=== PATIENT | male | born 1935 | race Caucasian/White ===

== ENCOUNTER 2016-07-31 15:59 | Inpatient (IN) | payer OTHER ==
[2016-07-31] MEDS ORDERED: TUSSIONEX PENNKINETIC SUSP PO PRN (17:50)
[2016-07-31] MEDS ORDERED: ZOFRAN INJ 4 MG VIAL IVP PRN (17:50)
[2016-07-31] MEDS ORDERED: NS 1000 ML 1,000 ML IV SCH (17:50)
[2016-07-31] MEDS ORDERED: PHARMACY CONSULT - DOSE _____ XX SCH (17:50)
[2016-07-31] MEDS ORDERED: NS 1000 ML 1,000 ML IV ONE (17:50)
[2016-07-31] MEDS ORDERED: SALINE 3% 15 ML NEB TX ONE (18:11)
[2016-07-31] MEDS ORDERED: SALINE 3% 15 ML NEB TX NEB ONE (18:12)
[2016-07-31] MEDS ORDERED: LEVAQUIN PREMIX IV 750 MG 750 MG/150 ML BAG IV STA (18:40)
[2016-07-31] MEDS: ROBITUSSIN DM PO SCH ×2 (18:44→20:55)
[2016-07-31 18:53] LABS: BASOPHILS # (AUTO) 0.1 X10^3/uL (0.0-0.1); EOSINOPHILS # (AUTO) 0.1 x10^3/uL (0.0-0.2); EOSINOPHILS % (AUTO) 1.5 % (0.9-2.9); HEMATOCRIT 42.1 % (42.0-54.0); HEMOGLOBIN 13.9 g/dL (13.5-18.0); LYMPHOCYTES # (AUTO) 1.4 X10^3/uL (1.3-2.9); LYMPHOCYTES % (AUTO) 21.4 % (21.0-51.0); MEAN CORPUSCULAR HEMOGLOBIN 29.4 pg (27.0-34.0); MEAN CORPUSCULAR HGB CONC 33.1 g/dL (33.0-35.0); MEAN CORPUSCULAR VOLUME 88.9 fL (80.0-100.0); MEAN PLATELET VOLUME 9.1 fL (7.4-11.0); MONOCYTES % (AUTO) 15.3 % (0.0-13.0); NEUTROPHILS # (AUTO) 3.9 x10^3/uL (2.2-4.8); NEUTROPHILS % (AUTO) 60.8 % (42.0-75.0); PLATELET COUNT 155 X10^3/uL (150.0-450.0); RED BLOOD COUNT 4.74 X10^6/uL (4.7-6.0); RED CELL DISTRIBUTION WIDTH 14.4 % (11.6-16.5); WHITE BLOOD COUNT 6.4 X10^3/uL (3.6-10.0)
[2016-07-31 18:56] LABS: ALANINE AMINOTRANSFERASE 39 Units/L (12-78); ALBUMIN 3.1 g/dL (3.4-5.0); ALKALINE PHOSPHATASE 85 Units/L (46-116); ASPARTATE AMINO TRANSFERASE 29 Units/L (15-37); BLOOD UREA NITROGEN 23 mg/dL (7-18); CALCIUM 8.2 mg/dL (8.5-10.1); CARBON DIOXIDE 31.1 mmol/L (21-32); CHLORIDE 105 mmol/L (98-107); COR CA(FOR HYPOALB) 8.9 mg/dL (8.5-10.1); CREATININE 1.39 mg/dL (0.70-1.30); GLUCOSE 106 mg/dL (65-99); SODIUM 146 mmol/L (136-145); TOTAL PROTEIN 6.9 g/dL (6.4-8.2); eGFR BLACK RACES > 60 (>60); eGFR NON BLACK RACES 52 (>60)
[2016-07-31] MEDS ORDERED: K-RIDER 10 MEQ/NS 100 ML 10 MEQ/100 ML BAG IV PRN (19:29)
[2016-07-31] MEDS ORDERED: POTASSIUM CHLORIDE LIQ 20 MEQ UDC PO PRN (19:29)
[2016-07-31] MEDS ORDERED: K-LYTE EFFERVESCENT PO PRN (19:29)
[2016-07-31] MEDS ORDERED: K-DUR TAB 20 MEQ PO PRN (19:29)
[2016-07-31 19:31] LABS: MYCOPLASMA PNEUMONIAE IGM AB POSITIVE (NEGATIVE)
[2016-07-31] MEDS: DUONEB 0.5 MG/3 MG NEB SCH (20:38)
[2016-07-31] MEDS ORDERED: NS 1/2 1000 ML IV 1,000 ML IV ONE (20:45)
[2016-07-31] MEDS: NS 1/2 1000 ML IV 1,000 ML IV SCH (20:57)
[2016-07-31 20:59] VITALS: BMI 28.3
[2016-07-31] MEDS: HUMULIN R SC PRN (21:00)
[2016-08-01] MEDS: DUONEB 0.5 MG/3 MG NEB SCH ×6 (00:50→20:50)
[2016-08-01 05:25] LABS: EOSINOPHILS # (AUTO) 0.1 x10^3/uL (0.0-0.2); EOSINOPHILS % (AUTO) 3.2 % (0.9-2.9); HEMATOCRIT 38.4 % (42.0-54.0); HEMOGLOBIN 12.9 g/dL (13.5-18.0); LYMPHOCYTES # (AUTO) 1.4 X10^3/uL (1.3-2.9); LYMPHOCYTES % (AUTO) 31.3 % (21.0-51.0); MEAN CORPUSCULAR HEMOGLOBIN 29.8 pg (27.0-34.0); MEAN CORPUSCULAR HGB CONC 33.6 g/dL (33.0-35.0); MEAN CORPUSCULAR VOLUME 88.7 fL (80.0-100.0); MEAN PLATELET VOLUME 9.2 fL (7.4-11.0); MONOCYTES % (AUTO) 21.5 % (0.0-13.0); PLATELET COUNT 125 X10^3/uL (150.0-450.0); RED BLOOD COUNT 4.32 X10^6/uL (4.7-6.0); RED CELL DISTRIBUTION WIDTH 14.4 % (11.6-16.5); WHITE BLOOD COUNT 4.6 X10^3/uL (3.6-10.0)
[2016-08-01 05:32] LABS: ALANINE AMINOTRANSFERASE 33 Units/L (12-78); ALBUMIN 2.7 g/dL (3.4-5.0); ALKALINE PHOSPHATASE 76 Units/L (46-116); ASPARTATE AMINO TRANSFERASE 24 Units/L (15-37); BLOOD UREA NITROGEN 20 mg/dL (7-18); CALCIUM 7.8 mg/dL (8.5-10.1); CARBON DIOXIDE 30.1 mmol/L (21-32); CHLORIDE 109 mmol/L (98-107); COR CA(FOR HYPOALB) 8.8 mg/dL (8.5-10.1); COR NA(FOR HYPERGLY) 149 mmol/L (136-145); CREATININE 1.27 mg/dL (0.70-1.30); GLUCOSE 171 mg/dL (65-99); MAGNESIUM 1.7 mg/dL (1.7-2.9); SODIUM 147 mmol/L (136-145); TOTAL PROTEIN 6.2 g/dL (6.4-8.2); eGFR BLACK RACES > 60 (>60); eGFR NON BLACK RACES 58 (>60)
[2016-08-01] MEDS ORDERED: NS 100 ML IV 100 ML IV ONE (05:56)
[2016-08-01 06:02] LABS: BAND NEUTROPHILS % 6 % (0-10)
[2016-08-01 06:03] LABS: PLATELET MORPHOLOGY COMMENT NORMAL (NORMAL)
--- NOTE | 2016-08-01 06:46 | CT ---
HISTORY: Pneumonia, shortness of breath Study: CTA chest with IV contrast Comparison: No priors Technique: Multiple axial images of the chest were obtained from the thoracic inlet to the upper abd omen during the administration of IV contrast. Coronal and sagittal images are reviewed. Dose reduct ion techniques utilized automatic exposure control. Findings: Small mediastinal lymph nodes are present centrally. No pathologic appearing lymph nodes are seen. There is no pericardial effusion observed. The thoracic aorta is normal in its contour without evid ence for aneurysmal dilatation. there are coronary artery calcifications bilaterally including the l eft distal main coronary artery. The central pulmonary arterial system does not demonstrate central filling defects to suggest pulmonary emboli. Evaluation of the lung parenchyma reveals centrilobular emphysema. There is mild cylindrical bronchi ectasis bilaterally.. No consolidation is seen. A tiny pleural effusion may be present on the left s neyda. There are areas of bronchial thickening present involving the lung bases likely representing mi ld bronchitis.. No pulmonary nodule or mass can be identified. The bony thorax is unremarkable in its appearance. The visualized portions of the upper abdomen are grossly unremarkable. IMPRESSION: COPD with mild bibasilar bronchitis. No consolidation is seen. A very tiny amount of pleural fluid i s seen on the left. No evidence of thoracic aortic aneurysm or pulmonary embolus. Bilateral coronary artery calcifications including the left distal main coronary artery. Reported By:
[2016-08-01] MEDS: HUMULIN R SC PRN (07:10)
[2016-08-01] MEDS: ROBITUSSIN DM PO SCH ×4 (09:17→21:02)
[2016-08-01] MEDS ORDERED: [UNRECOGNIZED DRUG - OTHER] PO SCH (09:45)
[2016-08-01] MEDS ORDERED: FERROUS SULFATE PO SCH (09:45)
[2016-08-01] MEDS ORDERED: [UNRECOGNIZED DRUG - OTHER] PO SCH (09:45)
[2016-08-01] MEDS: SPIRIVA HANDIHALER (30 DOSE) IN SCH (10:27)
[2016-08-01] MEDS: PROTONIX TAB 40 MG PO SCH ×2 (10:48→21:04)
[2016-08-01] MEDS: LASIX PO SCH ×2 (10:48→21:02)
[2016-08-01] MEDS: ASPIRIN EC 81 MG PO SCH (10:49)
[2016-08-01] MEDS: COREG TAB 12.5 MG PO SCH ×2 (10:49→21:04)
[2016-08-01] MEDS: COZAAR PO SCH (10:50)
[2016-08-01] MEDS: SYNTHROID 25 mcg TAB PO SCH (10:50)
--- NOTE | 2016-08-01 11:07 | DR.UPDATE ---
H&P Update History and Physical Update: H&P UPDATE FOR ADMISSION 07/31/16 MR. JENSEN'S H&P WAS COMPLETED IN OUR OFFICE PRIOR TO ADMISSION. HE HAS BEEN SEEN AND EXAMINED WITH NO CHANGES NOTED.
[2016-08-01] MEDS ORDERED: [UNRECOGNIZED DRUG - OTHER] SC SCH (11:30)
--- NOTE | 2016-08-01 11:37 | PCM.PROG ---
Progress Note - Progress Note for Day of Date: 08/01/16 - Subjective Subjective: PATIENT SITS ON SIDE OF BED WITH SIGNIFICANT OTHER AT BEDSIDE. PATIENT CONTINUES WITH HOARSE COUGH. COUGH IS PRODUCTIVE AT TIMES AND SPUTUM IS THICK, YELLOW. HE CONTINUES WITH SHORTNESS OF BREATH ON EXERTION ALONG WITH FATIGUE AND MALAISE. MYCOPLASMA PNEUMONIA WAS POSITIVE AND PATIENT WILL CONTINUE ON LEVAQUIN IV. ON AUSCULTATION. LUNGS ARE NOTED WITH WHEEZING THROUGHOUT. PATIENT REPORTS DIFFICULTY SWALLOWING AND OCCASIONAL CHOKING ON FOOD. PATIENT IS AFEBRILE. CBC WNL EXCEPT: H/H 12.9/38.4, PLT COUNT 125. CMP WNL EXCEPT: SODIUM 147, CHL 109, BUN 20, GFR 58, GLUCOSE 171, CALCIUM 7.8, TOT PROTEIN 6.2, ALBUMIN 2.7. CHEST CT THIS MORNING REPORTS COPD WITH MILD BIBASILAR BRONCHITIS; NO CONSOLIDATION IS SEEN; NO EVIDENCE OF THORACIC AORTIC ANEURYSM OR PULMONARY EMBOLUS; BILATERAL CORONARY ARTERY CALCIFICATIONS INCLUDING THE LEFT DISTAL MAIN CORONARY ARTERY. CARDIAC ENZYMES WNL. EKG: SINUS RHYTHM, RATE 58. BLOOD AND SPUTUM CULTURES ARE PENDING. WE WILL CONSULT GI FOR POSSIBLE OUTPATIENT EGD, OBTAIN SPEECH EVAL, CONTINUE HOME MEDICATIONS TODAY, CONTINUE CURRENT TREATMENT, AND FOLLOW UP IN AM WITH LABS AND CHEST XRAY. - Past Medical Family Social History Past Med/Fam/Surg Hx: No changes since H&P Allergies: Allergies No Known Drug Allergy Allergy (Verified 01/26/14 09:37) - Review of Systems ROS: No change since H&P - Vital Signs and I&O's Vital Signs: Temperature 98.0 F Pulse Rate [Left Brachial] 53 Pulse Rate [Right Brachial] 58 Pulse Rate 66 Respiratory Rate 20 Blood Pressure [Left Arm] 171/75 Blood Pressure [Right Arm] 171/75 Blood Pressure 144/65 O2 Sat by Pulse Oximetry 92 Intake and Output: Intake & Output 07/29/16 07/30/16 07/31/16 08/01/16 11:59 11:59 11:59 11:59 Intake Total 1220 Output Total 675 Balance 545 - Physical Exam Oriented: Normal, Time, Person, Place Eyes: Normal. negative: Blurred Vision, Diplopia, Discharge, Pain, Redness, Photophobia Ear: Normal. negative: Swelling, Ecchymosis, Hemotypanum, Abrasion, Laceration Nose: Normal. negative: Injected, Discharge, Blood Throat: Red, Dry. negative: Tonsillar Hypertrophy, Exudate Respiratory: Generalized, Wheezes Cardiovascular: Normal. negative: Murmur, Edema : Normal. negative: Dysuria, Hematuria, Frequency, Discharge, Testicular Pain Auscultation: Bowel Sounds: Normal. negative: Bruit Palpation: Normal. negative: Spleen Enlarged, Liver Enlarged, Mass Pulsatile Tenderness: Normal. negative: Rebound, Guarding, Rigidity Skin: Decreased Turgur. negative: Diaphoresis, Wound, Bruising, Ecchymosis Musculoskeletal: Normal Psychiatric: Normal Mood Description: Calm, Appropriate Affect: Normal Speech Pattern: Clear, Appropriate - Laboratory and Diagnostics Result Diagrams: 08/01/16 04:55 08/01/16 04:55 Labs: 07/31/16 19:36 Sputum - Expectorated Sputum - Final Laboratory WBC 4.6 X10^3/uL (3.6-10.0) 08/01/16 04:55 RBC 4.32 X10^6/uL (4.7-6.0) L 08/01/16 04:55 Hgb 12.9 g/dL (13.5-18.0) L 08/01/16 04:55 Hct 38.4 % (42.0-54.0) L 08/01/16 04:55 MCV 88.7 fL (80.0-100.0) 08/01/16 04:55 MCH 29.8 pg (27.0-34.0) 08/01/16 04:55 MCHC 33.6 g/dL (33.0-35.0) 08/01/16 04:55 RDW 14.4 % (11.6-16.5) 08/01/16 04:55 Plt Count 125 X10^3/uL (150.0-450.0) L 08/01/16 04:55 Plt Count Comment Decreased (ADEQUATE) 08/01/16 04:55 MPV 9.2 fL (7.4-11.0) 08/01/16 04:55 Neut % 43.0 % (42.0-75.0) 08/01/16 04:55 Lymph % 31.3 % (21.0-51.0) 08/01/16 04:55 [place] % 21.5 % (0.0-13.0) H 08/01/16 04:55 Eos % 3.2 % (0.9-2.9) H 08/01/16 04:55 Baso % 1.0 % (0.2-1.0) 08/01/16 04:55 Neut # 2.0 x10^3/uL (2.2-4.8) L 08/01/16 04:55 Lymph # 1.4 X10^3/uL (1.3-2.9) 08/01/16 04:55 [place] # 1.0 x10^3/uL (0.3-0.8) H 08/01/16 04:55 Eos # 0.1 x10^3/uL (0.0-0.2) 08/01/16 04:55 Baso # 0.0 X10^3/uL (0.0-0.1) 08/01/16 04:55 Absolute Nucleated RBC 0.1 /100WBC 08/01/16 04:55 Total Counted 100 08/01/16 04:55 Neutrophils % (Manual) 41 % (39-76) 08/01/16 04:55 Band Neutrophils % 6 % (0-10) 08/01/16 04:55 Lymphocytes % (Manual) 32 % (13-43) 08/01/16 04:55 Monocytes % (Manual) 17 % (4-9) H 08/01/16 04:55 Eosinophils % (Manual) 4 % (0-6) 08/01/16 04:55 Plt Morphology Comment Normal (NORMAL) 08/01/16 04:55 RBC Morphology Normal (NORMAL) 08/01/16 04:55 Sodium 147 mmol/L (136-145) H 08/01/16 04:55 Corrected Sodium 149 mmol/L (136-145) H 08/01/16 04:55 Potassium 3.8 mmol/L (3.5-5.1) 08/01/16 04:55 Chloride 109 mmol/L (98-107) H 08/01/16 04:55 Carbon Dioxide 30.1 mmol/L (21-32) 08/01/16 04:55 BUN 20 mg/dL (7-18) H 08/01/16 04:55 Creatinine 1.27 mg/dL (0.70-1.30) 08/01/16 04:55 Est GFR (MDRD) Af Amer > 60 (>60) 08/01/16 04:55 Est GFR (MDRD) Non-Af 58 (>60) L 08/01/16 04:55 Glucose 171 mg/dL (65-99) H 08/01/16 04:55 Calcium 7.8 mg/dL (8.5-10.1) L 08/01/16 04:55 Corrected Calcium 8.8 mg/dL (8.5-10.1) 08/01/16 04:55 Magnesium 1.7 mg/dL (1.7-2.9) 08/01/16 04:55 Total Bilirubin 0.40 mg/dL (0.2-1.0) 08/01/16 04:55 AST 24 Units/L (15-37) 08/01/16 04:55 ALT 33 Units/L (12-78) 08/01/16 04:55 Alkaline Phosphatase 76 Units/L (46-116) 08/01/16 04:55 Total Protein 6.2 g/dL (6.4-8.2) L 08/01/16 04:55 Albumin 2.7 g/dL (3.4-5.0) L 08/01/16 04:55 Globulin 3.5 g/dL (2.5-4.5) 08/01/16 04:55 Albumin/Globulin Ratio 0.8 Ratio (1.1-2.1) L 08/01/16 04:55 Mycoplasma pneumon IgG Positive (NEGATIVE) A 07/31/16 18:05 - Plan (1) Mycoplasma pneumonia Status: Acute Qualifiers: Laterality: unspecified laterality Lung location: unspecified part of lung Qualified Code(s): J15.7 - Pneumonia due to Mycoplasma pneumoniae Plan: CONTINUE IV LEVAQUIN, IV FLUIDS, DUONEBS, ROBITUSSIN, TUSSIONEX, SUPPLEMENTAL OXYGEN, MONITOR LABS AND CHEST XRAY. (2) Hypoxia Status: Acute Plan: ABOVE. (3) Dysphagia Status: Acute Qualifiers: Dysphagia type: D Plan: CONSULT GI FOR POSSIBLE OUTPATIENT EGD, SPEECH EVAL, MONITOR. (4) Fever Status: Acute Qualifiers: Fever type: due to other condition Encounter type: E Qualified Code(s): R50.81 - Fever presenting with conditions classified elsewhere Plan: ABOVE. (5) Shortness of breath Status: Acute Plan: ABOVE. (6) Malaise and fatigue Status: Acute Plan: ABOVE. (7) Hypertension Status: Chronic Qualifiers: Hypertension type: essential hypertension Qualified Code(s): I10 - Essential (primary) hypertension (8) COPD (chronic obstructive pulmonary disease) Status: Chronic Qualifiers: COPD type: COPD with acute lower respiratory infection Chronic bronchitis type: C Emphysema type: E Qualified Code(s): J44.0 - Chronic obstructive pulmonary disease with acute lower respiratory infection (9) GERD (gastroesophageal reflux disease) Status: Chronic Qualifiers: Esophagitis presence: esophagitis presence not specified Qualified Code(s) : K21.9 - Gastro-esophageal reflux disease without esophagitis (10) Diabetes type 2, controlled Status: Chronic Qualifiers: Diabetes mellitus complication status: without complication Diabetes mellitus complication detail: D Diabetic retinopathy severity: D Proliferative retinopathy type: P Diabetes mellitus macular edema: D Diabetes mellitus detention insulin use: with detention use Laterality: L Chronic kidney disease stage: C Qualified Code(s): E11.9 - Type 2 diabetes mellitus without complications; Z79.4 - continuous churn buttermaker (current) use of insulin (11) Hypothyroid Status: Chronic Qualifiers: Hypothyroidism type: acquired Qualified Code(s): E03.9 - Hypothyroidism, unspecified (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
[2016-08-01] MEDS ORDERED: NS 1/2 1000 ML IV 1,000 ML IV ONE (11:55)
[2016-08-01] MEDS: NS 1/2 1000 ML IV 1,000 ML IV SCH (11:59)
[2016-08-01] MEDS: PEPCID TAB 20 MG PO SCH ×2 (11:59→21:02)
--- NOTE | 2016-08-01 12:55 | RAD ---
PA and lateral Chest Indication: Cough, congestion and shortness of breath cough congestion shortness breath Comparison: 07/13/2016 Findings: The trachea is midline. The cardiac silhouette is unremarkable. The lungs are hyperexpanded consis tent with COPD. The lungs are clear without focal infiltrate or effusion. The stable blunting of le ft costophrenic sulcus suggest scarring. The bony thorax is unremarkable. IMPRESSION: 1. No acute cardiopulmonary abnormality. Reported By:
[2016-08-01] MEDS: HUMALOG SC SCH ×2 (13:25→17:00)
[2016-08-01] MEDS ORDERED: LEVAQUIN PREMIX IV 750 MG 750 MG/150 ML BAG IV SCH (18:00)
[2016-08-01] MEDS ORDERED: SNACK - Diabetic Appropriate PO SCH (20:00)
[2016-08-01] MEDS ORDERED: INSULIN GLARGINE SC SCH (21:00)
[2016-08-01] MEDS ORDERED: ZOCOR TAB 40 MG PO SCH (21:00)
[2016-08-01] MEDS ORDERED: LANTUS SC SCH (21:00)
[2016-08-01] MEDS ORDERED: HUMALOG SC PRN (22:38)
[2016-08-02] MEDS: DUONEB 0.5 MG/3 MG NEB SCH ×4 (01:22→11:57)
[2016-08-02] MEDS ORDERED: NS 1/2 1000 ML IV 1,000 ML IV ONE (03:07)
[2016-08-02] MEDS: NS 1/2 1000 ML IV 1,000 ML IV SCH ×2 (03:08→12:29)
[2016-08-02 05:34] LABS: BASOPHILS % (AUTO) 0.7 % (0.2-1.0); EOSINOPHILS # (AUTO) 0.3 x10^3/uL (0.0-0.2); EOSINOPHILS % (AUTO) 5.3 % (0.9-2.9); HEMOGLOBIN 12.4 g/dL (13.5-18.0); LYMPHOCYTES # (AUTO) 1.5 X10^3/uL (1.3-2.9); LYMPHOCYTES % (AUTO) 24.4 % (21.0-51.0); MEAN CORPUSCULAR HEMOGLOBIN 29.6 pg (27.0-34.0); MEAN CORPUSCULAR HGB CONC 33.5 g/dL (33.0-35.0); MEAN CORPUSCULAR VOLUME 88.3 fL (80.0-100.0); MEAN PLATELET VOLUME 9.1 fL (7.4-11.0); MONOCYTES # (AUTO) 0.8 x10^3/uL (0.3-0.8); MONOCYTES % (AUTO) 12.8 % (0.0-13.0); NEUTROPHILS # (AUTO) 3.5 x10^3/uL (2.2-4.8); NEUTROPHILS % (AUTO) 56.8 % (42.0-75.0); PLATELET COUNT 128 X10^3/uL (150.0-450.0); RED BLOOD COUNT 4.19 X10^6/uL (4.7-6.0); RED CELL DISTRIBUTION WIDTH 14.1 % (11.6-16.5); WHITE BLOOD COUNT 6.1 X10^3/uL (3.6-10.0)
[2016-08-02 05:53] LABS: ALANINE AMINOTRANSFERASE 30 Units/L (12-78); ALBUMIN 2.6 g/dL (3.4-5.0); ALKALINE PHOSPHATASE 70 Units/L (46-116); ASPARTATE AMINO TRANSFERASE 23 Units/L (15-37); BLOOD UREA NITROGEN 18 mg/dL (7-18); CALCIUM 7.7 mg/dL (8.5-10.1); CARBON DIOXIDE 27.9 mmol/L (21-32); CHLORIDE 107 mmol/L (98-107); COR CA(FOR HYPOALB) 8.8 mg/dL (8.5-10.1); CREATININE 1.02 mg/dL (0.70-1.30); GLUCOSE 79 mg/dL (65-99); SODIUM 144 mmol/L (136-145); eGFR BLACK RACES > 60 (>60); eGFR NON BLACK RACES > 60 (>60)
[2016-08-02] MEDS: HUMALOG SC SCH ×2 (05:55→12:29)
--- NOTE | 2016-08-02 07:01 | RAD ---
HISTORY: Mycoplasma pneumonia Study: Single-view chest, done portably Comparison: July 31, 2016 Findings: Cardiac monitoring electrodes are noted on the chest. There again changes of thoracotomy with median sternotomy sutures. The trachea is midline. The heart size is normal. There is hyperinflation of th e lungs with a small left pleural effusion. No infiltrate is seen. There is no evidence of CHF. No p neumothorax is identified. IMPRESSION: COPD with a small left pleural effusion. No infiltrate is seen. Reported By:
[2016-08-02] MEDS: SPIRIVA HANDIHALER (30 DOSE) IN SCH (08:33)
[2016-08-02] MEDS: PEPCID TAB 20 MG PO SCH (08:38)
[2016-08-02] MEDS: LASIX PO SCH (08:38)
[2016-08-02] MEDS: ROBITUSSIN DM PO SCH ×2 (08:38→12:50)
[2016-08-02] MEDS: COREG TAB 12.5 MG PO SCH (08:39)
[2016-08-02] MEDS: ASPIRIN EC 81 MG PO SCH (08:39)
[2016-08-02] MEDS: SYNTHROID 25 mcg TAB PO SCH (08:39)
[2016-08-02] MEDS: COZAAR PO SCH (08:40)
[2016-08-02] MEDS: PROTONIX TAB 40 MG PO SCH (08:40)
[2016-08-02] MEDS ORDERED: FERROUS SULFATE PO SCH (09:00)
[2016-08-02] MEDS ORDERED: VITAMIN D3 PO SCH (09:00)
[2016-08-02 13:31] VITALS: BP 180/80
== END 2016-08-02 14:15 | disposition home or self-care (01) | DRG 194 ==
LOC: MED/SURG 15:59
PROVIDERS: ADMIT Internal Medicine; ATTEND Internal Medicine
DX: J15.7 Pneumonia due to Mycoplasma pneumoniae (principal); J44.0 Chronic obstructive pulmonary disease with (acute) lower respiratory infection; J98.01 Acute bronchospasm; R06.09 Other forms of dyspnea; R09.02 Hypoxemia; E78.2 Mixed hyperlipidemia; R06.02 Shortness of breath; R53.83 Other fatigue; R13.12 Dysphagia, oropharyngeal phase; R50.81 Fever presenting with conditions classified elsewhere; I10 Essential (primary) hypertension; K21.9 Gastro-esophageal reflux disease without esophagitis; Z79.4 Long term (current) use of insulin; E11.65 Type 2 diabetes mellitus with hyperglycemia; E03.8 Other specified hypothyroidism; Z95.1 Presence of aortocoronary bypass graft
CPT/HCPCS: 36415; 71010; 71020; 71275; 80053; 83735; 84132; 85025; 86738; 87040; 87070; 87205; 93005; 94640; 94760; A4222; J1815; J1817; J1956; J7620

== ENCOUNTER → 2016-08-10 | Day surgery (SDC) | payer OTHER ==
[~2016-08-10] MED LIST: D5 LR 1000 ML 1,000 ML IV ONE; DIPRIVAN VIAL 20 ML ONE; XYLOCAINE 2 % (PLAIN) ONE
[2016-08-10 09:15] VITALS: BP 155/70
== END ==
LOC: SURG1 06:50
PROVIDERS: ATTEND Internal Medicine Gastroenterology
PROC: 0DB88ZX Excision of Small Intestine, Via Natural or Artificial Opening Endoscopic, Diagnostic (ICD-10-PCS; principal; 2016-08-10 10:00)
PROC: 0DJ08ZZ Inspection of Upper Intestinal Tract, Via Natural or Artificial Opening Endoscopic (ICD-10-PCS; principal; 2016-08-10 10:00)
PROC: 0DB68ZX Excision of Stomach, Via Natural or Artificial Opening Endoscopic, Diagnostic (ICD-10-PCS; principal; 2016-08-10 10:00)
PROC: 0D757ZZ Dilation of Esophagus, Via Natural or Artificial Opening (ICD-10-PCS; principal; 2016-08-10 10:00)
DX: R13.19 Other dysphagia (principal); R10.13 Epigastric pain; K21.9 Gastro-esophageal reflux disease without esophagitis; K22.2 Esophageal obstruction; B37.81 Candidal esophagitis; K29.60 Other gastritis without bleeding; K31.89 Other diseases of stomach and duodenum
CPT/HCPCS: A4217; J2001; J3490; J7120

== ENCOUNTER → 2017-06-18 | Outpatient (CLI) | payer OTHER ==
[2016-08-10 09:15] VITALS: BP 155/70
[2017-06-18 09:32] LABS: BASOPHILS % (AUTO) 0.4 % (0.2-1.0); EOSINOPHILS # (AUTO) 0.2 x10^3/uL (0.0-0.2); EOSINOPHILS % (AUTO) 1.7 % (0.9-2.9); HEMATOCRIT 47.9 % (42.0-54.0); LYMPHOCYTES # (AUTO) 2.1 X10^3/uL (1.3-2.9); LYMPHOCYTES % (AUTO) 17.6 % (21.0-51.0); MEAN CORPUSCULAR HEMOGLOBIN 30.1 pg (27.0-34.0); MEAN CORPUSCULAR HGB CONC 33.5 g/dL (33.0-35.0); MEAN CORPUSCULAR VOLUME 89.9 fL (80.0-100.0); MONOCYTES # (AUTO) 0.9 x10^3/uL (0.3-0.8); MONOCYTES % (AUTO) 7.3 % (0.0-13.0); NEUTROPHILS # (AUTO) 8.8 x10^3/uL (2.2-4.8); PLATELET COUNT 197 X10^3/uL (150.0-450.0); RED BLOOD COUNT 5.33 X10^6/uL (4.7-6.0); RED CELL DISTRIBUTION WIDTH 14.9 % (11.6-16.5); WHITE BLOOD COUNT 12.1 X10^3/uL (3.6-10.0)
[2017-06-18 09:44] LABS: ALANINE AMINOTRANSFERASE 49 Units/L (12-78); ALBUMIN 3.2 g/dL (3.4-5.0); ALKALINE PHOSPHATASE 89 Units/L (46-116); ASPARTATE AMINO TRANSFERASE 19 Units/L (15-37); BLOOD UREA NITROGEN 23 mg/dL (7-18); CALCIUM 9.2 mg/dL (8.5-10.1); CARBON DIOXIDE 34.9 mmol/L (21-32); CHLORIDE 105 mmol/L (98-107); COR CA(FOR HYPOALB) 9.8 mg/dL (8.5-10.1); COR NA(FOR HYPERGLY) 143 mmol/L (136-145); CREATININE 1.12 mg/dL (0.70-1.30); SODIUM 143 mmol/L (136-145); TOTAL PROTEIN 6.8 g/dL (6.4-8.2); eGFR BLACK RACES > 60 (>60); eGFR NON BLACK RACES > 60 (>60)
[2017-06-18 09:46] LABS: B-TYPE NATRIURETIC PEPTIDE 141 pg/mL (0-79)
[2017-06-18 10:09] LABS: ERYTHROCYTE SEDIMENTATION RATE 8 MM/HOUR (0-15)
== END ==
LOC: LAB 08:53
PROVIDERS: ATTEND Specialist
DX: I10 Essential (primary) hypertension (principal); R06.02 Shortness of breath; E78.4 Other hyperlipidemia; I25.10 Atherosclerotic heart disease of native coronary artery without angina pectoris; J44.9 Chronic obstructive pulmonary disease, unspecified; E11.9 Type 2 diabetes mellitus without complications; I65.29 Occlusion and stenosis of unspecified carotid artery; I73.9 Peripheral vascular disease, unspecified; Z79.899 Other long term (current) drug therapy; D64.89 Other specified anemias; I45.89 Other specified conduction disorders; I34.0 Nonrheumatic mitral (valve) insufficiency; R05 Cough
CPT/HCPCS: 36415; 80053; 83880; 85025; 85652; 86141

== ENCOUNTER 2018-12-17 13:39 | Observation (INO) ==
[2018-12-17] MEDS ORDERED: ZOFRAN INJ 4 MG VIAL IVP PRN (14:31)
[2018-12-17] MEDS: NS 1000 ML 1,000 ML IV SCH ×2 (15:39→23:38)
[2018-12-17] MEDS: PEPCID 20 MG IV PREMIX* 20 MG/50 ML BAG IV SCH ×2 (15:41→20:09)
[2018-12-17] MEDS: PROTONIX INJ 40 MG VIAL IVP SCH ×2 (15:41→20:10)
[2018-12-17 16:04] LABS: BASOPHILS # (AUTO) 0.1 X10^3/uL (0.0-0.1); BASOPHILS % (AUTO) 0.6 % (0.2-1.0); EOSINOPHILS # (AUTO) 0.1 x10^3/uL (0.0-0.2); EOSINOPHILS % (AUTO) 1.1 % (0.9-2.9); LYMPHOCYTES # (AUTO) 1.6 X10^3/uL (1.3-2.9); LYMPHOCYTES % (AUTO) 17.6 % (21.0-51.0); MEAN CORPUSCULAR HEMOGLOBIN 27.5 pg (27.0-34.0); MEAN CORPUSCULAR HGB CONC 32.5 g/dL (33.0-35.0); MEAN CORPUSCULAR VOLUME 84.6 fL (80.0-100.0); MEAN PLATELET VOLUME 7.8 fL (7.4-11.0); MONOCYTES # (AUTO) 0.8 x10^3/uL (0.3-0.8); MONOCYTES % (AUTO) 8.9 % (0.0-13.0); NEUTROPHILS # (AUTO) 6.7 x10^3/uL (2.2-4.8); NEUTROPHILS % (AUTO) 71.8 % (42.0-75.0); PLATELET COUNT 282 X10^3/uL (150.0-450.0); RED BLOOD COUNT 4.02 X10^6/uL (4.7-6.0); WHITE BLOOD COUNT 9.3 X10^3/uL (3.6-10.0)
[2018-12-17 16:16] LABS: ALANINE AMINOTRANSFERASE 19 Units/L (12-78); ALBUMIN 3.1 g/dL (3.4-5.0); ALKALINE PHOSPHATASE 100 Units/L (46-116); ASPARTATE AMINO TRANSFERASE 17 Units/L (15-37); BLOOD UREA NITROGEN 17 mg/dL (7-18); CALCIUM 8.5 mg/dL (8.5-10.1); CARBON DIOXIDE 24.4 mmol/L (21-32); CHLORIDE 108 mmol/L (98-107); COR CA(FOR HYPOALB) 9.2 mg/dL (8.5-10.1); COR NA(FOR HYPERGLY) 144 mmol/L (136-145); CREATININE 1.15 mg/dL (0.70-1.30); SODIUM 143 mmol/L (136-145); TOTAL PROTEIN 7.2 g/dL (6.4-8.2); eGFR NON BLACK RACES > 60 (>60)
--- NOTE | 2018-12-17 16:21 | RAD ---
Chest, one view Indication: Weakness, shortness of breath Comparison: 11/22/2018 Findings: Heart is normal in size. Prior median sternotomy and left-sided pacemaker noted. Small left pleural effusion and left basilar airspace disease, either representing atelectasis and/or infiltrate is essentially unchanged since prior exam. Remainder of the lungs are clear. No pneumothorax. Impression: Stable small left pleural effusion and left basilar airspace disease. Reported By:
[2018-12-17] MEDS: DUONEB 0.5 MG/3 MG NEB SCH ×2 (16:45→20:34)
[2018-12-17 17:00] VITALS: BMI 26.1
[2018-12-17] MEDS: PULMICORT NEB TX 0.5 MG NEB SCH (20:34)
[2018-12-17] MEDS: SNACK - Diabetic Appropriate PO SCH (20:58)
[2018-12-17 21:05] LABS: BILIRUBIN,URINE NEGATIVE (NEGATIVE); BLOOD/HEMOGLOBIN,URINE 1+ (NEGATIVE); GLUCOSE, URINE 1+ (NEGATIVE); KETONES,URINE NEGATIVE (NEGATIVE); LEUKOCYTE ESTERASE ,URINE NEGATIVE (NEGATIVE); NITRITES,URINE NEGATIVE (NEGATIVE); PROTEIN,URINE 3+ (NEGATIVE); UROBILINOGEN,URINE NORMAL (NORMAL)
[2018-12-17 21:23] LABS: APPEARANCE,URINE CLEAR (CLEAR); BACTERIA,URINE NEGATIVE /HPF (NEGATIVE); COLOR,URINE YELLOW (YELLOW); HYALINE CASTS, URINE FEW /LPF (NEGATIVE); RBC,URINE 0-2 /HPF (NONE SEEN); SQUAMOUS EPITHELIAL CELL,UR NEGATIVE /HPF (NEGATIVE)
[2018-12-17] MEDS: HumuLIN R SUBCUT PRN (21:41)
[2018-12-17 21:59] LABS: CRYPTOSPORIDIUM PARVUM ANTIGEN NEGATIVE (NEGATIVE); GIARDIA LAMBLIA ANTIGEN NEGATIVE (NEGATIVE)
[2018-12-18] MEDS: NS 1000 ML 1,000 ML IV SCH ×6 (02:43→23:10)
[2018-12-18] MEDS: HumuLIN R SUBCUT PRN ×3 (05:58→19:07)
--- NOTE | 2018-12-18 06:14 | RAD ---
HISTORY: Shortness of breath Study: Chest AP portable Comparison: 12/17/2018 Findings: There is a pacemaker present on the left. The patient is status post median sternotomy. The heart is within normal limits in size. The gudelia are normal. The lungs are hyperinflated but free of acute infiltrates. Blunting of the left costophrenic angle likely indicates a small pleural effusion versus fibrosis. The bony thorax is unremarkable. IMPRESSION: Lungs hyperinflated but free of acute infiltrates Reported By:
[2018-12-18 06:39] LABS: BASOPHILS # (AUTO) 0.1 X10^3/uL (0.0-0.1); BASOPHILS % (AUTO) 0.7 % (0.2-1.0); EOSINOPHILS # (AUTO) 0.2 x10^3/uL (0.0-0.2); EOSINOPHILS % (AUTO) 2.7 % (0.9-2.9); HEMATOCRIT 35.3 % (42.0-54.0); HEMOGLOBIN 11.4 g/dL (13.5-18.0); LYMPHOCYTES # (AUTO) 1.8 X10^3/uL (1.3-2.9); LYMPHOCYTES % (AUTO) 23.3 % (21.0-51.0); MEAN CORPUSCULAR HEMOGLOBIN 27.7 pg (27.0-34.0); MEAN CORPUSCULAR HGB CONC 32.2 g/dL (33.0-35.0); MEAN CORPUSCULAR VOLUME 85.8 fL (80.0-100.0); MEAN PLATELET VOLUME 8.8 fL (7.4-11.0); MONOCYTES # (AUTO) 0.7 x10^3/uL (0.3-0.8); MONOCYTES % (AUTO) 9.6 % (0.0-13.0); NEUTROPHILS % (AUTO) 63.7 % (42.0-75.0); PLATELET COUNT 261 X10^3/uL (150.0-450.0); RED BLOOD COUNT 4.11 X10^6/uL (4.7-6.0); RED CELL DISTRIBUTION WIDTH 16.2 % (11.6-16.5); WHITE BLOOD COUNT 7.8 X10^3/uL (3.6-10.0)
[2018-12-18 06:56] LABS: ALANINE AMINOTRANSFERASE 20 Units/L (12-78); ALBUMIN 3.2 g/dL (3.4-5.0); ALKALINE PHOSPHATASE 102 Units/L (46-116); ASPARTATE AMINO TRANSFERASE 17 Units/L (15-37); BLOOD UREA NITROGEN 14 mg/dL (7-18); CALCIUM 8.3 mg/dL (8.5-10.1); CARBON DIOXIDE 25.1 mmol/L (21-32); CHLORIDE 109 mmol/L (98-107); COR CA(FOR HYPOALB) 8.9 mg/dL (8.5-10.1); COR NA(FOR HYPERGLY) 146 mmol/L (136-145); CREATININE 1.14 mg/dL (0.70-1.30); SODIUM 144 mmol/L (136-145); TOTAL PROTEIN 7.6 g/dL (6.4-8.2); eGFR NON BLACK RACES > 60 (>60)
[2018-12-18] MEDS: PULMICORT NEB TX 0.5 MG NEB SCH ×2 (08:20→20:28)
[2018-12-18] MEDS: DUONEB 0.5 MG/3 MG NEB SCH ×5 (08:20→20:28)
[2018-12-18] MEDS: PEPCID 20 MG IV PREMIX* 20 MG/50 ML BAG IV SCH ×2 (08:43→20:44)
[2018-12-18] MEDS: PROTONIX INJ 40 MG VIAL IVP SCH ×2 (08:43→20:45)
[2018-12-18] MEDS ORDERED: PATIENT'S HOME MEDICATION (Ferrous Sulfate [Ferrous Sulfate] 325 MG) PO SCH (09:00)
[2018-12-18] MEDS ORDERED: PATIENT'S HOME MEDICATION (Fluticasone-Umeclidin-Vilanter [Fluticasone-Umeclidin-Vilanter] IN SCH (09:00)
[2018-12-18] MEDS: ASPIRIN EC 81 MG PO SCH (09:53)
[2018-12-18] MEDS: COZAAR PO SCH (09:53)
[2018-12-18] MEDS: LYRICA CAP 50 MG PO SCH ×2 (09:53→20:45)
[2018-12-18] MEDS: SYNTHROID 50 mcg TAB PO SCH (09:53)
[2018-12-18] MEDS: DALIRESP PO SCH (09:53)
[2018-12-18] MEDS: COREG TAB 3.125 MG PO SCH ×2 (09:53→20:47)
[2018-12-18] MEDS: LASIX PO SCH ×2 (09:54→20:46)
[2018-12-18] MEDS ORDERED: LOMOTIL PO PRN (10:26)
[2018-12-18] MEDS: LEVEMIR SC SCH ×2 (11:03→20:45)
[2018-12-18] MEDS ORDERED: PHARMACY CONSULT - DOSE _____ XX SCH (13:00)
[2018-12-18] MEDS: LOVENOX INJ 40 MG SYR SC SCH (14:16)
[2018-12-18] MEDS: CIPRO IV 400 MG PREMIX* 400 MG/200 ML IV.SOLN. IV SCH (14:17)
--- NOTE | 2018-12-18 19:44 | DR.H&P ---
H&P - History & Physical for Day of: H&P Date: 12/17/18 - Chief Complaint Chief Complaint: ABDOMINAL PAIN, WEAKNESS, DIARRHEA - History of Present Illness History of Present Illness: IS A 83 YEAR OLD PATIENT OF OURS WHO PRESENTED TO THE HOSPITAL A DIRECT ADMISSION DUE TO COMPLAINTS OF ABDOMINAL PAIN, NAUSEA, VOMITING, AND SEVERE DIARRHEA. HE REPORTS TEN OR MORE EPISODES OF DIARRHEA FOR THE PAST THREE DAYS. ON ARRIVAL, VITALS WERE 98.4-71-18-96%-129/60. LABS WERE OBTAINED. ABNORMAL LAB VALUES INCLUDE THE FOLLOWING: RBC 4.02, HGB 11.0, HCT 34.0, CHLORIDE 108, GLUCOSE 161, ALBUMIN 3.1. A URINALYSIS WAS OBTAINED AND REVEALED: WBC 3-5, RBC 0-2, OCCULT BLOOD 1+, LEUKOCYTES NEGATIVE, BACTERIA NEGATIVE, NITRITES NEGATIVE. STOOL CULTURES WERE OBTAINED AND WERE POSITIVE FOR OCCULT BLOOD AND WHITE CHELLS. A STOOL CULTURE IS PENDING. A CHEST XRAY WAS OBTAINED AND REVEALED: STABLE SMALL LEFT PLEURAL EFFUSION AND LEFT BASILAR AIRSPACE DISEASE. HE WAS STARTED ON NORMAL SALINE AT 125ML/HR, PEPCID IV, PROTONIX IV, AND HOME MEDICATIONS WERE RESUMED. OTHERWISE, WE WILL FOLLOW UP WITH AM LABS AND CONTINUE TO MONITOR. - Past Medical History Past Medical History: Diabetes, Hypertension - Past Surgical History Surgical History: Angioplasty/Stents, CABG/Valve Surgery, Other - Family History Family Medical History: Diabetes Mellitus, Cancer, [place], Hypertension - Social History Does patient currently use any type of tobacco product: No Have you used tobacco products in the last 12 months: No Type of Tobacco Use: Cigarettes Does any household member use tobacco: No Alcohol Use: None Drug Use: Prescription Drugs - Medications Home Medications: diphenhydramine [From Benadryl] Allergy (Verified 12/17/18 15:30) CONTINUE taking the following medications amlodipine 1 tab PO BID 12/17/18 [History] apixaban [Eliquis] 1 tab PO BID 12/17/18 [History] aspirin [Ecotrin Low Strength] 1 tab PO DAILY 12/17/18 [History] carvedilol 1 tab PO BID 12/17/18 [History] [id number] [Trelegy Ellipta] 1 puff INHALATION DAILY 12/17/18 [History] insulin detemir U-100 [Levemir FlexTouch U-100 Insuln] 20 - 25 units SUBCUT BID 12/17/18 [History] levothyroxine 1 tab PO DAILY 12/17/18 [History] pregabalin [Lyrica] 1 cap PO BID 12/17/18 [History] roflumilast [Daliresp] 1 tab PO DAILY 12/17/18 [History] - Review of Systems Constitutional: See HPI, Weakness Eyes: No Symptoms Reported ENT: No Symptoms Reported Respiratory: Shortness of Breath Cardiovascular: No Symptoms Reported Gastrointestinal: See HPI, Nausea, Vomiting, Abdominal Pain, Diarrhea Genitourinary: No Symptoms Reported Musculoskeletal: No Symptoms Reported Skin: No Symptoms Reported Neurological: Weakness - Physical Exam Vital Signs: Temperature 98.1 F Pulse Rate [Right Brachial] 71 Pulse Rate [Left Brachial] 72 Pulse Rate 79 Respiratory Rate 18 Blood Pressure [Left Arm] 164/68 Blood Pressure [Right Arm] 149/72 Blood Pressure 155/70 O2 Sat by Pulse Oximetry 96 Oriented: Time Eyes: Normal Ear: Normal Nose: Normal Throat: Normal Respiratory: Diminished Throughout Cardiovascular: Normal : Normal Auscultation: Bowel Sounds: Increased Palpation: Normal Tenderness: Diffuse, Moderate. negative: Rebound, Guarding, Rigidity Skin: Normal Musculoskeletal: Normal Psychiatric: Normal Mood Description: Calm Affect: Normal Speech Pattern: Clear - Assessment/Plan (1) Abdominal pain Qualifiers: Abdominal location: generalized Qualified Code(s): R10.84 - Generalized abdominal pain Status: Acute Plan: ADMIT, IV FLUIDS, IV PEPCID, IV PROTONIX, GI COCKTAIL, CONTINUE TO MONITOR (2) Nausea & vomiting Qualifiers: Vomiting Intractability: unspecified Status: Acute Plan: IV ZOFRAN, PEPCID, PROTONIX, GI COCKTAIL, CONTINUE TO MONITOR (3) Diarrhea Qualifiers: Diarrhea type: infectious Qualified Code(s): A09 - Infectious gastroenteritis and colitis, unspecified Status: Acute Plan: IV CIPRO, CONTINUE TO MONITOR - Allergies Allergies/Adverse Reactions: Allergies Allergy/AdvReac Type Severity Reaction Status Date / Time diphenhydramine Allergy Verified 12/17/18 15:30 [From Karley]
[2018-12-18] MEDS: SNACK - Diabetic Appropriate PO SCH (20:53)
[2018-12-18] MEDS ORDERED: ZOCOR TAB 40 MG PO SCH (21:00)
[2018-12-19] MEDS: NS 1000 ML 1,000 ML IV SCH (05:28)
--- NOTE | 2018-12-19 06:06 | RAD ---
HISTORY: Shortness of breath Study: Chest AP portable Comparison: 12/18/2018 Findings: There is a pacemaker present on the left obscuring a portion of the left lung apex. The patient is status post median sternotomy. Heart size is normal. The gudelia are normal. The aorta is calcified. The lungs are hyperinflated but free of acute infiltrates. Blunting of the left costophrenic angle could indicate fibrosis or a small pleural effusion. No right pleural effusion is present. The bony thorax is unremarkable. IMPRESSION: Lungs hyperinflated but free of acute infiltrates Reported By:
[2018-12-19 06:25] LABS: BASOPHILS % (AUTO) 0.6 % (0.2-1.0); EOSINOPHILS # (AUTO) 0.3 x10^3/uL (0.0-0.2); EOSINOPHILS % (AUTO) 3.9 % (0.9-2.9); HEMATOCRIT 29.4 % (42.0-54.0); HEMOGLOBIN 9.6 g/dL (13.5-18.0); LYMPHOCYTES # (AUTO) 1.4 X10^3/uL (1.3-2.9); MEAN CORPUSCULAR HEMOGLOBIN 27.9 pg (27.0-34.0); MEAN CORPUSCULAR HGB CONC 32.5 g/dL (33.0-35.0); MEAN CORPUSCULAR VOLUME 85.6 fL (80.0-100.0); MEAN PLATELET VOLUME 8.8 fL (7.4-11.0); MONOCYTES # (AUTO) 0.7 x10^3/uL (0.3-0.8); MONOCYTES % (AUTO) 10.3 % (0.0-13.0); NEUTROPHILS # (AUTO) 4.5 x10^3/uL (2.2-4.8); NEUTROPHILS % (AUTO) 65.2 % (42.0-75.0); PLATELET COUNT 193 X10^3/uL (150.0-450.0); RED BLOOD COUNT 3.43 X10^6/uL (4.7-6.0); RED CELL DISTRIBUTION WIDTH 16.4 % (11.6-16.5); WHITE BLOOD COUNT 6.9 X10^3/uL (3.6-10.0)
[2018-12-19 06:44] LABS: ALANINE AMINOTRANSFERASE 15 Units/L (12-78); ALBUMIN 2.7 g/dL (3.4-5.0); ALKALINE PHOSPHATASE 82 Units/L (46-116); ASPARTATE AMINO TRANSFERASE 14 Units/L (15-37); BLOOD UREA NITROGEN 10 mg/dL (7-18); CALCIUM 7.7 mg/dL (8.5-10.1); CARBON DIOXIDE 23.7 mmol/L (21-32); CHLORIDE 111 mmol/L (98-107); COR CA(FOR HYPOALB) 8.7 mg/dL (8.5-10.1); COR NA(FOR HYPERGLY) 145 mmol/L (136-145); CREATININE 0.96 mg/dL (0.70-1.30); SODIUM 145 mmol/L (136-145); TOTAL PROTEIN 6.5 g/dL (6.4-8.2); eGFR NON BLACK RACES > 60 (>60)
[2018-12-19] MEDS: DUONEB 0.5 MG/3 MG NEB SCH (08:41)
[2018-12-19] MEDS: PULMICORT NEB TX 0.5 MG NEB SCH (08:41)
[2018-12-19] MEDS ORDERED: FERROUS GLUCONATE PO SCH (09:00)
[2018-12-19] MEDS: ASPIRIN EC 81 MG PO SCH (09:18)
[2018-12-19] MEDS: CIPRO IV 400 MG PREMIX* 400 MG/200 ML IV.SOLN. IV SCH (09:18)
[2018-12-19] MEDS: SYNTHROID 50 mcg TAB PO SCH (09:18)
[2018-12-19] MEDS: COZAAR PO SCH (09:18)
[2018-12-19] MEDS: LYRICA CAP 50 MG PO SCH (09:19)
[2018-12-19] MEDS: PROTONIX INJ 40 MG VIAL IVP SCH (09:19)
[2018-12-19] MEDS: PEPCID 20 MG IV PREMIX* 20 MG/50 ML BAG IV SCH (09:19)
[2018-12-19] MEDS: DALIRESP PO SCH (09:19)
[2018-12-19] MEDS: LASIX PO SCH (09:19)
[2018-12-19] MEDS: COREG TAB 3.125 MG PO SCH (09:19)
[2018-12-19] MEDS: LEVEMIR SC SCH (09:20)
[2018-12-19] MEDS: LOVENOX INJ 40 MG SYR SC SCH (09:21)
[2018-12-19] MEDS: HumuLIN R SUBCUT PRN (12:13)
[2018-12-19 12:16] VITALS: BP 164/68
--- NOTE | 2019-01-06 21:23 | PCM.PROG ---
Progress Note - Progress Note for Day of Date of Exam: 12/18/18 - Subjective Subjective: WAS ADMITTED YESTERDAY FOR INTRACTABLE DIARRHEA, VOMITING, AND SEVERE WEAKNESS. TODAY, HE IS ALERT AND ORIENTED, LYING IN BED ON MORNING ROUNDS. HE CONTINUES WITH COMPLAINTS OF SEVERE WEAKNESS AND DIARRHEA. HE DOES REPORT THAT DIARRHEA HAS SLOWED DOWN SINCE ADMISSION. ON EXAMINATION, HEART IS REGULAR IN RATE AND RHYTHM. BILATERAL LUNGS ARE NOTED WITH DIMINISHED LUNG SOUNDS THROUGHOUT. ABDOMEN IS ROUND, SOFT, AND CONTINUES WITH DIFFUSE TENDERNESS. HYPERACTIVE BOWEL SOUNDS ARE NOTED. HIS VITALS THIS MORNING ARE: 98.7-76-18-95%-160/75. LABS WERE OBTAINED. ABNORMAL LAB VALUES INCLUDE THE FOLLOWING: RBC 4.11, HGB 11.4, HCT 35.3, CHLORIDE 109, GLUCOSE 173, CALCIUM 8.3, ALBUMIN 3.2. STOOL IS POSITIVE FOR OCCULT BLOOD AND WHITE CELLS. STOOL CULTURE IS PENDING. HE IS CURRENTY RECEIVING IV FLUIDS, IV ZOFRAN, IV PEPCID, IV PROTONIX. WE WILL CONTINUE WITH CURRENT PLAN OF CARE TODAY AND RESUME HIS HOME MEDICATIONS. OTHERWISE, WE WILL FOLLOW UP WITH AM LABS AND CONTINUE TO MONITOR. - Past Medical Family Social History Past Med/Fam/Surg Hx: No changes since H&P Allergies: Allergies diphenhydramine [From Benadryl] Allergy (Verified 12/17/18 15:30) - Review of Systems ROS: No change since H&P - Vital Signs and I&O's Vital Signs: Temperature 98.6 F Pulse Rate [Right Brachial] 76 Pulse Rate [Left Brachial] 72 Pulse Rate 79 Respiratory Rate 18 Blood Pressure [Left Arm] 164/68 Blood Pressure [Right Arm] 164/68 Blood Pressure 155/70 O2 Sat by Pulse Oximetry 98 - Physical Exam Oriented: Time Eyes: Normal Ear: Normal Nose: Normal Throat: Normal Respiratory: Generalized, Diminished Cardiovascular: Normal : Normal Auscultation: Bowel Sounds: Increased Palpation: Normal Tenderness: Diffuse, Moderate. negative: Rebound, Guarding, Rigidity Skin: Normal Musculoskeletal: Normal Psychiatric: Normal Mood Description: Calm Affect: Normal Speech Pattern: Clear - Laboratory and Diagnostics Result Diagrams: 12/19/18 05:48 12/19/18 05:48 Labs: 12/17/18 20:27 Stool Stool Culture - Final 12/17/18 20:27 Stool - Final Laboratory WBC 6.9 X10^3/uL (3.6-10.0) 12/19/18 05:48 RBC 3.43 X10^6/uL (4.7-6.0) L 12/19/18 05:48 Hgb 9.6 g/dL (13.5-18.0) L 12/19/18 05:48 Hct 29.4 % (42.0-54.0) L 12/19/18 05:48 MCV 85.6 fL (80.0-100.0) 12/19/18 05:48 MCH 27.9 pg (27.0-34.0) 12/19/18 05:48 MCHC 32.5 g/dL (33.0-35.0) L 12/19/18 05:48 RDW 16.4 % (11.6-16.5) 12/19/18 05:48 Plt Count 193 X10^3/uL (150.0-450.0) 12/19/18 05:48 MPV 8.8 fL (7.4-11.0) 12/19/18 05:48 Neut % (Auto) 65.2 % (42.0-75.0) 12/19/18 05:48 Lymph % (Auto) 20.0 % (21.0-51.0) L 12/19/18 05:48 [place] % (Auto) 10.3 % (0.0-13.0) 12/19/18 05:48 Eos % (Auto) 3.9 % (0.9-2.9) H 12/19/18 05:48 Baso % (Auto) 0.6 % (0.2-1.0) 12/19/18 05:48 Neut # (Auto) 4.5 x10^3/uL (2.2-4.8) 12/19/18 05:48 Lymph # (Auto) 1.4 X10^3/uL (1.3-2.9) 12/19/18 05:48 [place] # (Auto) 0.7 x10^3/uL (0.3-0.8) 12/19/18 05:48 Eos # (Auto) 0.3 x10^3/uL (0.0-0.2) H 12/19/18 05:48 Baso # (Auto) 0.0 X10^3/uL (0.0-0.1) 12/19/18 05:48 Absolute Nucleated RBC 0.0 /100WBC 12/19/18 05:48 Sodium 145 mmol/L (136-145) 12/19/18 05:48 Corrected Sodium 145 mmol/L (136-145) 12/19/18 05:48 Potassium 3.5 mmol/L (3.5-5.1) 12/19/18 05:48 Chloride 111 mmol/L (98-107) H 12/19/18 05:48 Carbon Dioxide 23.7 mmol/L (21-32) 12/19/18 05:48 BUN 10 mg/dL (7-18) 12/19/18 05:48 Creatinine 0.96 mg/dL (0.70-1.30) 12/19/18 05:48 Est GFR (MDRD) Af Amer > 60 (>60) 12/19/18 05:48 Est GFR (MDRD) Non-Af > 60 (>60) 12/19/18 05:48 Glucose 118 mg/dL (65-99) H 12/19/18 05:48 Calcium 7.7 mg/dL (8.5-10.1) L 12/19/18 05:48 Corrected Calcium 8.7 mg/dL (8.5-10.1) 12/19/18 05:48 Total Bilirubin 0.30 mg/dL (0.2-1.0) 12/19/18 05:48 AST 14 Units/L (15-37) L 12/19/18 05:48 ALT 15 Units/L (12-78) 12/19/18 05:48 Alkaline Phosphatase 82 Units/L (46-116) 12/19/18 05:48 Total Protein 6.5 g/dL (6.4-8.2) 12/19/18 05:48 Albumin 2.7 g/dL (3.4-5.0) L 12/19/18 05:48 Globulin 3.8 g/dL (2.5-4.5) 12/19/18 05:48 Albumin/Globulin Ratio 0.7 Ratio (1.1-2.1) L 12/19/18 05:48 Specimen Type Clean catch urine 12/17/18 20:51 Urine Color Yellow (YELLOW) 12/17/18 20:51 Urine Appearance Clear (CLEAR) 12/17/18 20:51 Urine pH 5.0 (5.0 - 8.0) 12/17/18 20:51 Ur Specific [place] 1.020 (1.000-1.030) 12/17/18 20:51 Urine Protein 3+ (NEGATIVE) 12/17/18 20:51 Urine Glucose (UA) 1+ (NEGATIVE) 12/17/18 20:51 Urine Ketones Negative (NEGATIVE) 12/17/18 20:51 Urine Occult Blood 1+ (NEGATIVE) 12/17/18 20:51 Urine Nitrite Negative (NEGATIVE) 12/17/18 20:51 Urine Bilirubin Negative (NEGATIVE) 12/17/18 20:51 Urine Urobilinogen Normal (NORMAL) 12/17/18 20:51 Ur Leukocyte Esterase Negative (NEGATIVE) 12/17/18 20:51 Urine RBC 0-2 /HPF (NONE SEEN) 12/17/18 20:51 Urine WBC 3-5 /HPF (NONE SEEN) 12/17/18 20:51 Ur Squamous Epith Cells Negative /HPF (NEGATIVE) 12/17/18 20:51 Urine Bacteria Negative /HPF (NEGATIVE) 12/17/18 20:51 Hyaline Casts Few /LPF (NEGATIVE) 12/17/18 20:51 Ur Culture Indicated? No/not indicated 12/17/18 20:51 Stool Description 10grs brown mucoid 12/17/18 20:27 Stl Occult Blood (IFOB) Positive (NEGATIVE) A 12/17/18 20:27 Stool for White Cells Positive (NEGATIVE) A 12/17/18 20:27 Stl C. diff Tox B Gene Negative (NEGATIVE) 12/17/18 20:27 Stl C. diff [id number] Negative (NEGATIVE) 12/17/18 20:27 Cryptosporid parvum Ag Negative (NEGATIVE) 12/17/18 20:27 Giardia lamblia Ag Negative (NEGATIVE) 12/17/18 20:27 - Plan (1) Abdominal pain Status: Acute Qualifiers: Abdominal location: generalized Qualified Code(s): R10.84 - Generalized abdominal pain Plan: IV FLUIDS, IV PEPCID, IV PROTONIX, GI COCKTAIL, CONTINUE TO MONITOR (2) Nausea & vomiting Status: Acute Qualifiers: Vomiting Intractability: unspecified Plan: IV ZOFRAN, PEPCID, PROTONIX, GI COCKTAIL, CONTINUE TO MONITOR (3) Diarrhea Status: Acute Qualifiers: Diarrhea type: infectious Qualified Code(s): A09 - Infectious gastroenteritis and colitis, unspecified Plan: IV CIPRO, CONTINUE TO MONITOR
== END 2018-12-19 13:45 | disposition home or self-care (01) ==
LOC: MED/SURG
PROVIDERS: ADMIT Internal Medicine; ATTEND Internal Medicine
DX: A09 Infectious gastroenteritis and colitis, unspecified; R53.1 Weakness; R11.2 Nausea with vomiting, unspecified; R10.84 Generalized abdominal pain; E11.65 Type 2 diabetes mellitus with hyperglycemia; I10 Essential (primary) hypertension
CPT/HCPCS: 36415; 71010; 71045; 80053; 81001; 82270; 83630; 85025; 87045; 87328; 87329; 87427; 87449; 87493; 87899; 94640; 94760; A4222; C9113; S0028; G0378; J0744; J1650; J1815; J7030; J7620; J7626

== ENCOUNTER 2019-05-15 22:20 | Observation (INO) ==
[2019-05-15 23:14] VITALS: BMI 27.0
[2019-05-15 23:29] LABS: BASOPHILS % (AUTO) 0.3 % (0.2-1.0); EOSINOPHILS # (AUTO) 0.3 x10^3/uL (0.0-0.2); EOSINOPHILS % (AUTO) 2.3 % (0.9-2.9); HEMATOCRIT 44.2 % (42.0-54.0); HEMOGLOBIN 14.5 g/dL (13.5-18.0); LYMPHOCYTES # (AUTO) 2.8 X10^3/uL (1.3-2.9); LYMPHOCYTES % (AUTO) 20.4 % (21.0-51.0); MEAN CORPUSCULAR HEMOGLOBIN 27.2 pg (27.0-34.0); MEAN CORPUSCULAR HGB CONC 32.7 g/dL (33.0-35.0); MEAN PLATELET VOLUME 8.6 fL (7.4-11.0); MONOCYTES # (AUTO) 1.5 x10^3/uL (0.3-0.8); MONOCYTES % (AUTO) 10.6 % (0.0-13.0); NEUTROPHILS # (AUTO) 9.1 x10^3/uL (2.2-4.8); NEUTROPHILS % (AUTO) 66.4 % (42.0-75.0); PLATELET COUNT 316 X10^3/uL (150.0-450.0); RED BLOOD COUNT 5.32 X10^6/uL (4.7-6.0); RED CELL DISTRIBUTION WIDTH 17.7 % (11.6-16.5); WHITE BLOOD COUNT 13.8 X10^3/uL (3.6-10.0)
[2019-05-15 23:38] LABS: ALANINE AMINOTRANSFERASE 36 Units/L (12-78); ALBUMIN 3.4 g/dL (3.4-5.0); ALKALINE PHOSPHATASE 145 Units/L (46-116); ASPARTATE AMINO TRANSFERASE 17 Units/L (15-37); BLOOD UREA NITROGEN 30 mg/dL (7-18); CALCIUM 9.4 mg/dL (8.5-10.1); CARBON DIOXIDE 31.2 mmol/L (21-32); CHLORIDE 102 mmol/L (98-107); CHOL/HDL RATIO 3.6 (0.0-5.0); CHOLESTEROL 169 mg/dL (0-200); COR NA(FOR HYPERGLY) 144 mmol/L (136-145); HDL CHOLESTEROL 47 mg/dL (40-60); SODIUM 141 mmol/L (136-145); TOTAL PROTEIN 7.4 g/dL (6.4-8.2); TRIGLYCERIDES 143 mg/dL (0-150); eGFR NON BLACK RACES 56 (>60)
--- NOTE | 2019-05-16 00:26 | DR.WEAKNES ---
HPI Time Seen Time Seen by Provider: 05/16/19 00:24 Primary Care Physician Primary Care Physician: ROSA HPI Comment HPI Comment: PATIENT IS 83YR OLD MALE IN ER WITH HISTORY OF DOUBLE VISION AND ATAXIA SINCE LAST NIGHT. HISTORY HYPERTENSION AND DM. RIGHT SIDED HIGH STEPPING WHEN PATIENT IS WALKING. NO TRAUMA, NO FEVER. NO HEADACHE OR DYSURIA. Complaints Chief Complaint Doctors Comments: RIGHT SIDED DOUBLE VISION SINCE LAST NIGHT WITH IMBALANCE. Chief Complaint:: PATIENTS AT SIDE STATED" HE STARTED LASTNIGHT AROUND 10:00 HAVING DOUBLE VISION IN HIS RIGHT EYE WHEN HE WALKS HE IS PICKING UP HIS RIGHT FOOT REALLY HIGH TO STEP WE WENT TO THE EYE DR IN [place] AND THEY SENT US STRAIGHT TO THE ER IN [place] AND WE SIT THERE ALL AFTERNOON AND THEY NEVER EVEN GOT TO TRIAGE HIM SO WE LEFT AND I CALLED AND SPOKE WITH DR LEE AND HE STATED FOR ME TO BRING TO THE HOSPITAL TO ADMIT FOR POSSIBLE STROKE." Reviewed Nurses Notes Reviewed: Yes Source History Provided: Patient Mode of Arrival Mode of Arrival: Ambulatory Timing Onset of Chief Complaint: 05/14/19 Since onset, symptoms are:: Improved Symptom Onset: Known Duration Duration: Since Onset Duration: Hours Context Onset: Spontaneous Symptoms: Diplopia History of: None Stroke Symptoms: Ataxia Location Weakness Location: Normal Associated Signs and Symptoms Associated Signs and Symptoms: None PMH PMH Past Medical History: Yes Past Medical History: COPD, Diabetes, Dyslipidemia, GERD, Hypertension and Hypothyroidism Past Medical History Comment: LUNG CANCER Past Surgical History: Yes Surgical History: Angioplasty/Stents, CABG/Valve Surgery and Other Past Surgical History Comment: PACEMAKER Family History History of Family Medical Conditions: Yes Family Medical History: Diabetes Mellitus, Cancer, [place] and Hypertension Social History Alcohol Use: None Do you use any recreational Drugs:: No Lives Where: Home infectious screening Have you traveled outside the country in the last 6 months?: No Isolation: Standard ROS Review of Systems Constitutional: No Symptoms Reported and See HPI; negative Fever Eyes: See HPI and Diplopia ENTM: No Symptoms Reported and See HPI Respiratoy: No Symptoms Reported and See HPI Cardiovascular: No Symptoms Reported and See HPI Gastrointestinal/Abdominal: No Symptoms Reported and See HPI Genitourinary: No Symptoms Reported and See HPI Neurological: See HPI and Other (ATAXIA) Musculoskeletal: No Symptoms Reported and See HPI Integumentary: No Symptoms Reported and See HPI Hematologic/Lymphatic: No Symptoms Reported and See HPI Endocrine: No Symptoms Reported and See HPI Psychiatric: No Symptoms Reported and See HPI All Other Systems: Reviewed and Negative PE Vital Signs Vitals: Temperature 98.9 F Pulse Rate 72 Respiratory Rate 18 Blood Pressure [Left Arm] 132/55 Blood Pressure [Left Arm] 164/68 Blood Pressure [Right Arm] 164/68 Blood Pressure 161/72 O2 Sat by Pulse Oximetry 94 General Limitations: No Limitations General Appearance: Alert and In No Apparent Distress Head Head Exam: Normal Inspection and Atraumatic Head Exam Physical: Other (NONE KNOWN.) Eyes Eye exam: Normal Appearance, PERRL and EOMI; negative Scleral Icterus and Con junctival Injection Eyelids: Normal Inspection: Bilateral Pupils: Regular, Round: Bilateral and Reactive: Bilateral Sclera/Conjunctival: Normal Inspection: Bilateral ENT ENT Exam: Normal Exam; negative Normal Oropharynx, Normal External Ear Exam and Mucous Membranes Dry Mouth Exam: Normal Inspection; negative Lip Swelling and Tongue Swelling Throat Exam: Normal Inspection; negative Tonsillar Erythema, Tonsillomegaly and Tonsillar Exudate Neck Neck Exam: Normal Inspection and Trachea Midline; negative Tenderness and Lymphadenopathy Chest Chest Inspection: Normal Inspection Respiratory Respiratory Exam: Normal Lung Sounds Bilat Respiratory Exam: Bilateral: Clear to Auscultation Cardiovascular Cardiovascular Exam: Regular Rate and Normal Rhythm Abdominal Exam Abdominal Exam: Normal Inspection, Normal Bowel Sounds and Soft; negative Tenderness Extremities Extremities Exam: Normal Inspection and Normal Capillary Refill; negative Tenderness and Edema Back Back Exam: Normal Inspection; negative (R) CVA Tenderness and (L) CVA Tenderness Neurologic Neurological Exam: Alert, Oriented X3 and CN II-XII Intact; negative Motor Sensory Deficit Patient Oriented To: Person, Place and Time Speech: Fluid Speech Cranial Nerve Exam: EOM Function (II, III, IV, ): Normal, Facial Sensation (V): Normal, Facial Palsy (VII): Normal, Gag reflex (XI): Normal, Spinal Accessory Function (XI): Normal and Tongue Deviation: Normal Motor Strength - LUE: 5/5 Motor Strength - RUE: 5/5 Motor Strength - LLE: 5/5 Motor Strength - RLE: 5/5 Upper Motor Neuron Exam: Babinski Sign: Normal Psychiatric Psychiatric Exam: Normal Affect and Normal Mood Skin Skin Exam: Warm, Dry, Intact and Normal Color MDM Differential Diagnosis Differential Diagnosis: CVA, Mass Lesion and TIA COURSE Treatment Treatment: SEE ORDERS. Education/Counseling Education/Counseling: Patient and Family Educated On: Diagnosis ROR Labs Reviewed Laboratory Results Reviewed?: Yes Result Diagrams: 05/17/19 06:20 05/17/19 06:20 Laboratory: WBC 13.8 X10^3/uL (3.6-10.0) H 05/15/19 23:00 RBC 5.32 X10^6/uL (4.7-6.0) 05/15/19 23:00 Hgb 14.5 g/dL (13.5-18.0) 05/15/19 23:00 Hct 44.2 % (42.0-54.0) 05/15/19 23:00 MCV 83.0 fL (80.0-100.0) 05/15/19 23:00 MCH 27.2 pg (27.0-34.0) 05/15/19 23:00 MCHC 32.7 g/dL (33.0-35.0) L 05/15/19 23:00 RDW 17.7 % (11.6-16.5) H 05/15/19 23:00 Plt Count 316 X10^3/uL (150.0-450.0) 05/15/19 23:00 MPV 8.6 fL (7.4-11.0) 05/15/19 23:00 Neut % (Auto) 66.4 % (42.0-75.0) 05/15/19 23:00 Lymph % (Auto) 20.4 % (21.0-51.0) L 05/15/19 23:00 [place] % (Auto) 10.6 % (0.0-13.0) 05/15/19 23:00 Eos % (Auto) 2.3 % (0.9-2.9) 05/15/19 23:00 Baso % (Auto) 0.3 % (0.2-1.0) 05/15/19 23:00 Neut # (Auto) 9.1 x10^3/uL (2.2-4.8) H 05/15/19 23:00 Lymph # (Auto) 2.8 X10^3/uL (1.3-2.9) 05/15/19 23:00 [place] # (Auto) 1.5 x10^3/uL (0.3-0.8) H 05/15/19 23:00 Eos # (Auto) 0.3 x10^3/uL (0.0-0.2) H 05/15/19 23:00 Baso # (Auto) 0.0 X10^3/uL (0.0-0.1) 05/15/19 23:00 Absolute Nucleated RBC 0.1 /100WBC 05/15/19 23:00 PT 12.3 SECONDS (11.8-14.3) 05/15/19 23:00 INR Target Range - 05/15/19 23:00 INR 0.95 (0.8-1.3) 05/15/19 23:00 APTT 30.5 SECONDS (22.9-36.5) 05/15/19 23:00 PTT Comment - 05/15/19 23:00 Fibrinogen 437 mg/dL (239-489) 05/15/19 23:00 Sodium 141 mmol/L (136-145) 05/15/19 23:00 Corrected Sodium 144 mmol/L (136-145) 05/15/19 23:00 Potassium 3.6 mmol/L (3.5-5.1) 05/15/19 23:00 Chloride 102 mmol/L (98-107) 05/15/19 23:00 Carbon Dioxide 31.2 mmol/L (21-32) 05/15/19 23:00 BUN 30 mg/dL (7-18) H 05/15/19 23:00 Creatinine 1.30 mg/dL (0.70-1.30) 05/15/19 23:00 Est GFR (MDRD) Af Amer > 60 (>60) 05/15/19 23:00 Est GFR (MDRD) Non-Af 56 (>60) L 05/15/19 23:00 Glucose 217 mg/dL (65-99) H 05/15/19 23:00 Calcium 9.4 mg/dL (8.5-10.1) 05/15/19 23:00 Corrected Calcium TNP 05/15/19 23:00 Total Bilirubin 0.40 mg/dL (0.2-1.0) 05/15/19 23:00 AST 17 Units/L (15-37) 05/15/19 23:00 ALT 36 Units/L (12-78) 05/15/19 23:00 Alkaline Phosphatase 145 Units/L (46-116) H 05/15/19 23:00 Total Protein 7.4 g/dL (6.4-8.2) 05/15/19 23:00 Albumin 3.4 g/dL (3.4-5.0) 05/15/19 23:00 Globulin 4.0 g/dL (2.5-4.5) 05/15/19 23:00 Albumin/Globulin Ratio 0.9 Ratio (1.1-2.1) L 05/15/19 23:00 Triglycerides 143 mg/dL (0-150) 05/15/19 23:00 Cholesterol 169 mg/dL (0-200) 05/15/19 23:00 LDL Cholesterol, Calc 93 mg/dL (0-100) 05/15/19 23:00 HDL Cholesterol 47 mg/dL (40-60) 05/15/19 23:00 Cholesterol/HDL Ratio 3.6 (0.0-5.0) 05/15/19 23:00 XRAY XRAY Interpreted by: Radiologist XRAY Findings: REPORT NOTED AND DISCUSSED WITH PATIENT AND . EKG Rate: 72 Rhythm: PVCs Opioid Opioid Risk Tool Age (Gabo box if 16-45): No History of Preadolescent Sexual Abuse: No Total: 0 Total Score Risk Category: Low Risk Copyright: Gabriel DEVINE predicting aberrant behaviors Diagnosis Discharge Problem: Ataxia, Double vision, Acute CVA (cerebrovascular accident) Instructions Forms: Excuse From Work or School Patient Portal
[2019-05-16] MEDS ORDERED: NS 1000 ML 1,000 ML ONE ×2 (01:16→01:18)
[2019-05-16] MEDS: NS 1000 ML 1,000 ML IV SCH ×2 (01:20→20:01)
[2019-05-16] MEDS ORDERED: INSULIN LISPRO 8 UNIT SUBCUT SCH (06:00)
[2019-05-16 06:12] LABS: BASOPHILS # (AUTO) 0.1 X10^3/uL (0.0-0.1); BASOPHILS % (AUTO) 0.9 % (0.2-1.0); EOSINOPHILS # (AUTO) 0.3 x10^3/uL (0.0-0.2); EOSINOPHILS % (AUTO) 3.3 % (0.9-2.9); HEMATOCRIT 41.4 % (42.0-54.0); HEMOGLOBIN 13.6 g/dL (13.5-18.0); LYMPHOCYTES # (AUTO) 2.6 X10^3/uL (1.3-2.9); LYMPHOCYTES % (AUTO) 25.4 % (21.0-51.0); MEAN CORPUSCULAR HEMOGLOBIN 27.5 pg (27.0-34.0); MEAN CORPUSCULAR HGB CONC 32.8 g/dL (33.0-35.0); MEAN CORPUSCULAR VOLUME 83.8 fL (80.0-100.0); MEAN PLATELET VOLUME 8.9 fL (7.4-11.0); MONOCYTES # (AUTO) 1.2 x10^3/uL (0.3-0.8); MONOCYTES % (AUTO) 11.7 % (0.0-13.0); NEUTROPHILS % (AUTO) 58.7 % (42.0-75.0); PLATELET COUNT 254 X10^3/uL (150.0-450.0); RED BLOOD COUNT 4.94 X10^6/uL (4.7-6.0); WHITE BLOOD COUNT 10.2 X10^3/uL (3.6-10.0)
[2019-05-16 06:18] LABS: BILIRUBIN,URINE NEGATIVE (NEGATIVE); BLOOD/HEMOGLOBIN,URINE NEGATIVE (NEGATIVE); GLUCOSE, URINE NEGATIVE (NEGATIVE); KETONES,URINE NEGATIVE (NEGATIVE); LEUKOCYTE ESTERASE ,URINE 1+ (NEGATIVE); NITRITES,URINE NEGATIVE (NEGATIVE); PROTEIN,URINE 3+ (NEGATIVE); UROBILINOGEN,URINE NORMAL (NORMAL)
[2019-05-16 06:31] LABS: COLOR,URINE YELLOW (YELLOW)
[2019-05-16 06:32] LABS: ALANINE AMINOTRANSFERASE 32 Units/L (12-78); ALBUMIN 2.9 g/dL (3.4-5.0); ALKALINE PHOSPHATASE 125 Units/L (46-116); ASPARTATE AMINO TRANSFERASE 21 Units/L (15-37); BLOOD UREA NITROGEN 25 mg/dL (7-18); CALCIUM 8.4 mg/dL (8.5-10.1); CARBON DIOXIDE 31.9 mmol/L (21-32); CHLORIDE 105 mmol/L (98-107); CKMB % 5.6 % (<4); COR CA(FOR HYPOALB) 9.3 mg/dL (8.5-10.1); COR NA(FOR HYPERGLY) 144 mmol/L (136-145); CREATINE KINASE 18 Units/L (39-308); CREATINE KINASE MB < 1.0 ng/mL (0-4.0); CREATININE 1.07 mg/dL (0.70-1.30); SODIUM 143 mmol/L (136-145); TOTAL PROTEIN 6.5 g/dL (6.4-8.2); TROPONIN I < 0.02 ng/mL (0-1.5); eGFR NON BLACK RACES > 60 (>60)
[2019-05-16 06:32] LABS: APPEARANCE,URINE SLIGHTLY HAZY (CLEAR)
[2019-05-16 06:33] LABS: AMORPHOUS SEDIMENT,UR 1+ /HPF (NEGATIVE); BACTERIA,URINE NEGATIVE /HPF (NEGATIVE); MUCUS,URINE FEW /HPF (NEGATIVE); RBC,URINE NONE SEEN /HPF (0-3); SQUAMOUS EPITHELIAL CELL,UR RARE /HPF (NEGATIVE)
[2019-05-16] MEDS: HumaLOG SC SCH ×3 (06:40→17:00)
[2019-05-16] MEDS: COZAAR PO SCH (08:49)
[2019-05-16] MEDS: COREG TAB 3.125 MG PO SCH ×2 (08:49→22:00)
[2019-05-16] MEDS: LASIX PO SCH ×2 (08:50→22:00)
[2019-05-16] MEDS: LEVEMIR SC SCH ×2 (08:50→22:00)
[2019-05-16] MEDS: PROTONIX TAB 40 MG PO SCH ×2 (08:52→22:00)
[2019-05-16] MEDS: NORVASC TAB 5 MG PO SCH ×2 (08:52→22:00)
[2019-05-16] MEDS: SYNTHROID 50 mcg TAB PO SCH (08:52)
[2019-05-16] MEDS: PEPCID TAB 20 MG PO SCH ×2 (08:52→22:00)
[2019-05-16] MEDS: DALIRESP PO SCH (08:55)
[2019-05-16] MEDS: LYRICA CAP 50 mg PO SCH ×2 (08:56→22:00)
[2019-05-16] MEDS ORDERED: PATIENT'S HOME MEDICATION (Fluticasone-Umeclidin-Vilanter [Trelegy Ellipta] 1 INH) IN SCH (09:00)
[2019-05-16] MEDS ORDERED: INSULIN DETEMIR U 20 UNIT SUBCUT SCH (09:00)
[2019-05-16] MEDS: PULMICORT NEB TX 0.5 MG NEB SCH ×2 (09:15→20:52)
[2019-05-16] MEDS: DUONEB 0.5 MG/3 MG (3 mL) NEB SCH ×2 (09:15→20:52)
--- NOTE | 2019-05-16 10:39 | DR.H&P ---
H&P - History & Physical for Day of: H&P Date: 05/16/19 - Chief Complaint Chief Complaint: DOUBLE VISION, WEAKNESS - History of Present Illness History of Present Illness: IS A 83 YEAR OLD PATIENT OF OURS WHO PRESENTED TO THE ER WITH COMPLAINTS OF DOUBLE VISION, UNSTEADY GAIT, AND WEAKNESS THAT STARTED AT APPROXIMATELY 2200 THE PREVIOUS NIGHT. HE HAS A PMH OF COPD, Diabetes, Dyslipidemia, GERD, Hypertension and Hypothyroidism, and lung cancer. ON ARRIVAL, VITALS WERE 98.9-72-18-94%-161/72. LABS WERE OBTAINED. ABNORMAL LAB VALUES INCLUDE THE FOLLOWING: WBC 13.8, BUN 30, GLUCOSE 217, ALK PHOS 145. URINALYSIS IS UNREMARKABLE. A BRAIN CT WAS OBTAINED AND REVEALED INVOLUTIONAL CHANGES PRESENT WITH FINDINGS SUGGESTING SMALL VESSEL ISCHEMIC DISEASE WHICH ARE TO A DEGREE THAT WOULD BE CONSIDERED WITHIN NORMAL LIMITS FOR THE PATIENTS STATED AGE. THERE IS NO EVIDENCE OF AN ACUTE INTRACRANIAL BLEED. EKG REVEALED: PACED RHYTHM WITH HR 72. HE WAS ADMITTED FOR FURTHER EVALUATION AND TREATMENT OF ATAXIA, DOUBLE VISION, WEAKNESS, RULE OUT CVA. HE WAS STARTED ON NORMAL SALINE AT [facility] AND HOME MEDICATIONS WERE RESUMED. WE PLAN TO FOLLOW UP WITH AM LABS AND CONTINUE TO MONITOR. - Past Medical History Past Medical History: Hypertension, Dyslipidemia, Diabetes, Hypothyroidism, COPD, GERD - Past Surgical History Surgical History: Angioplasty/Stents, CABG/Valve Surgery Additional Surgical History: HERNIA REPAIR - Family History Family Medical History: Diabetes Mellitus, Cancer, [place], Hypertension - Social History Does patient currently use any type of tobacco product: No Have you used tobacco products in the last 12 months: No Does any household member use tobacco: No Alcohol Use: None Drug Use: None - Medications Home Medications: diphenhydramine [From Benadryl] Allergy (Verified 03/26/19 08:10) CONTINUE taking the following medications amlodipine [Norvasc] 5 mg PO BID 05/15/19 [History] carvedilol [Coreg] 3.125 mg PO BID 05/15/19 [History] famotidine [Pepcid] 40 mg PO BID 05/15/19 [History] utitvdabwpt-adbrrwcyq-xehoxpzv [Trelegy Ellipta] 1 inh INHALATION DAILY 05/15/19 [History] furosemide [Lasix] 20 mg PO BID 05/15/19 [History] insulin detemir U-100 [Levemir FlexTouch U-100 Insuln] 25 unit SUBCUT BID 05/15/19 [History] insulin lispro [Humalog KwikPen Insulin] 8 - 15 unit SUBCUT TIDWM 05/15/19 [History] levothyroxine 50 mcg PO DAILY 05/15/19 [History] losartan [Cozaar] 100 mg PO DAILY 05/15/19 [History] pantoprazole [Protonix] 40 mg PO BID 05/15/19 [History] pregabalin [Lyrica] 50 mg PO BID 05/15/19 [History] roflumilast [Daliresp] 500 mcg PO DAILY 05/15/19 [History] simvastatin [Zocor] 40 mg PO HS 05/15/19 [History] B-complex with vitamin C [Super B Complex-Vitamin C] 1 tab PO ONCE 05/16/19 [History] Bifidobacterium infantis [Align] 4 mg PO QHS 05/16/19 [History] albuterol sulfate [ProAir HFA] 1 - 2 puff INHALATION Q4-6H PRN 05/16/19 [History] aspirin [Ecotrin Low Strength] 81 mg PO DAILY 05/16/19 [History] ferrous sulfate [iron] 325 mg PO BID 05/16/19 [History] ipratropium-albuterol 3 ml INHALATION QID 05/16/19 [History] - Review of Systems Constitutional: Weakness, Other (UNSTEADY GAIT ) Eyes: See HPI, Vision Change ENT: No Symptoms Reported Respiratory: No Symptoms Reported Cardiovascular: No Symptoms Reported Gastrointestinal: No Symptoms Reported Genitourinary: No Symptoms Reported Musculoskeletal: No Symptoms Reported Skin: No Symptoms Reported Neurological: See HPI, Weakness - Physical Exam Vital Signs: Temperature 97.9 F Pulse Rate [Brachial] 72 Pulse Rate 71 Respiratory Rate 18 Blood Pressure [Left Arm] 154/71 Blood Pressure [Left Arm] 164/68 Blood Pressure [Right Arm] 199/88 Blood Pressure 161/72 O2 Sat by Pulse Oximetry 95 Oriented: Normal Eyes: Blurred Vision, Diplopia Ear: Normal Nose: Normal Throat: Normal Respiratory: Diminished Throughout Cardiovascular: Normal. negative: S3, S4, Murmur, Edema : Normal Auscultation: Bowel Sounds: Normal Palpation: Normal Tenderness: Normal Skin: Normal Musculoskeletal: Motor Deficit Psychiatric: Normal Mood Description: Calm Affect: Normal Speech Pattern: Clear - Assessment/Plan (1) Ataxia Status: Acute Plan: ADMIT, NORMAL SALINE, RESUME HOME MEDS, CONTINUE TO MONITOR (2) Double vision with both eyes open Status: Acute (3) Weakness generalized Status: Acute - Allergies Allergies/Adverse Reactions: Allergies Allergy/AdvReac Type Severity Reaction Status Date / Time diphenhydramine Allergy Verified 03/26/19 08:10 [From Karley]
[2019-05-16] MEDS ORDERED: B COMPLEX WITH VITAMIN C PO SCH (10:45)
[2019-05-16] MEDS ORDERED: BIFIDOBACTERIUM INFANTIS 4 MG PO SCH (10:45)
[2019-05-16 11:21] LABS: CKMB % 4.4 % (<4); CREATINE KINASE 23 Units/L (39-308); CREATINE KINASE MB < 1.0 ng/mL (0-4.0); TROPONIN I < 0.02 ng/mL (0-1.5)
[2019-05-16] MEDS: FERROUS GLUCONATE PO SCH ×2 (12:14→22:00)
[2019-05-16] MEDS: ASPIRIN EC 81 MG PO SCH (12:15)
[2019-05-16] MEDS ORDERED: ZOCOR TAB 40 MG PO SCH (21:00)
[2019-05-16] MEDS ORDERED: VSL#3 PO SCH (21:00)
[2019-05-16] MEDS ORDERED: MICRO K EXTEN CAP 10 MEQ PO ONE ×2 (22:45→22:50)
[2019-05-17] MEDS: NS 1000 ML 1,000 ML IV SCH (03:55)
[2019-05-17 06:29] LABS: BASOPHILS # (AUTO) 0.1 X10^3/uL (0.0-0.1); BASOPHILS % (AUTO) 0.9 % (0.2-1.0); EOSINOPHILS # (AUTO) 0.3 x10^3/uL (0.0-0.2); EOSINOPHILS % (AUTO) 3.1 % (0.9-2.9); HEMATOCRIT 40.8 % (42.0-54.0); HEMOGLOBIN 13.4 g/dL (13.5-18.0); LYMPHOCYTES % (AUTO) 19.7 % (21.0-51.0); MEAN CORPUSCULAR HEMOGLOBIN 27.2 pg (27.0-34.0); MEAN CORPUSCULAR HGB CONC 32.9 g/dL (33.0-35.0); MEAN CORPUSCULAR VOLUME 82.6 fL (80.0-100.0); MEAN PLATELET VOLUME 8.2 fL (7.4-11.0); MONOCYTES # (AUTO) 1.2 x10^3/uL (0.3-0.8); MONOCYTES % (AUTO) 11.7 % (0.0-13.0); NEUTROPHILS # (AUTO) 6.4 x10^3/uL (2.2-4.8); NEUTROPHILS % (AUTO) 64.6 % (42.0-75.0); PLATELET COUNT 237 X10^3/uL (150.0-450.0); RED BLOOD COUNT 4.94 X10^6/uL (4.7-6.0); WHITE BLOOD COUNT 9.9 X10^3/uL (3.6-10.0)
[2019-05-17 06:50] LABS: ALANINE AMINOTRANSFERASE 29 Units/L (12-78); ALBUMIN 2.7 g/dL (3.4-5.0); ALKALINE PHOSPHATASE 106 Units/L (46-116); ASPARTATE AMINO TRANSFERASE 17 Units/L (15-37); BLOOD UREA NITROGEN 19 mg/dL (7-18); CALCIUM 8.2 mg/dL (8.5-10.1); CARBON DIOXIDE 31.8 mmol/L (21-32); CHLORIDE 106 mmol/L (98-107); COR CA(FOR HYPOALB) 9.2 mg/dL (8.5-10.1); COR NA(FOR HYPERGLY) 143 mmol/L (136-145); CREATININE 1.01 mg/dL (0.70-1.30); SODIUM 142 mmol/L (136-145); TOTAL PROTEIN 6.3 g/dL (6.4-8.2); eGFR NON BLACK RACES > 60 (>60)
[2019-05-17 08:16] LABS: BAND NEUTROPHILS % 12 % (0-10); BASOPHILS % (MANUAL) 1 % (0-1)
[2019-05-17 08:17] LABS: PLATELET MORPHOLOGY COMMENT NORMAL (NORMAL)
[2019-05-17] MEDS: DUONEB 0.5 MG/3 MG (3 mL) NEB SCH (08:55)
[2019-05-17] MEDS: PULMICORT NEB TX 0.5 MG NEB SCH (08:55)
[2019-05-17] MEDS: PROTONIX TAB 40 MG PO SCH (09:50)
[2019-05-17] MEDS: SYNTHROID 50 mcg TAB PO SCH (09:50)
[2019-05-17] MEDS: DALIRESP PO SCH (09:50)
[2019-05-17] MEDS: LASIX PO SCH (09:51)
[2019-05-17] MEDS: LYRICA CAP 50 mg PO SCH (09:51)
[2019-05-17] MEDS: PEPCID TAB 20 MG PO SCH (09:51)
[2019-05-17] MEDS: COREG TAB 3.125 MG PO SCH (09:51)
[2019-05-17] MEDS: ASPIRIN EC 81 MG PO SCH (09:51)
[2019-05-17] MEDS: COZAAR PO SCH (09:51)
[2019-05-17] MEDS: NORVASC TAB 5 MG PO SCH (09:52)
[2019-05-17] MEDS: FERROUS GLUCONATE PO SCH (09:52)
[2019-05-17] MEDS: LEVEMIR SC SCH (09:52)
[2019-05-17] MEDS: HumaLOG SC SCH (13:03)
[2019-05-17 13:38] VITALS: BP 176/81
--- NOTE | 2019-05-19 10:31 | CT ---
STUDY: CT HEAD WITHOUT IV CONTRASTCOMPARISON: NoneTECHNIQUE: axial images were acquired of the head without IV contrast. Coronal and sagittal images were provided. All images were reviewed in a variety of windows and levels.RADIATION REDUCTION TECHNIQUE: Automated exposure control, Adjustment of the mA and/or kV according to patient size, or iterative reconstruction techniques were used.HISTORY: POSSIBLE STROKEFINDINGS:There is diffuse cerebral atrophy with a regional distribution of low attenuation along the periventricular white matter most likely representing small vessel ischemic changes which are to a degree that would be considered within normal limits for the patient's stated age.There is no evidence of an acute intracranial bleed.There is no evidence of a mass or midline shift.There is no evidence of an extra-axial fluid collection.The guzmán-white matter differentiation is within normal limits.The visualized bones are unremarkable.The visualized sinuses are clear.The mastoid air cells are well-aerated.IMPRESSION:1. Involutional changes are present with findings suggesting small vessel ischemic disease which are to a degree that would be considered within normal limits for the patient's stated age.2. There is no evidence of an acute intracranial bleed.Electronically signed by: Tate Anne (May 16, 2019 00:23:26)
== END 2019-05-17 13:30 | disposition home or self-care (01) ==
LOC: ER 22:20 → OBS 22:20
PROVIDERS: ADMIT Internal Medicine; ATTEND Internal Medicine
DX: E11.9 Type 2 diabetes mellitus without complications; R27.8 Other lack of coordination; J44.9 Chronic obstructive pulmonary disease, unspecified; I10 Essential (primary) hypertension; R26.81 Unsteadiness on feet; R53.1 Weakness; H53.8 Other visual disturbances; E78.5 Hyperlipidemia, unspecified
CPT/HCPCS: 36415; 70450; 80053; 80061; 81001; 82550; 82553; 83735; 84484; 85025; 85384; 85610; 85730; 93005; 94640; 94760; 96365; 99284; A4222; G0378; J1815; J1817; J7030; J7620; J7626